=== PATIENT | female | born 1990 | race Caucasian/White ===

== ENCOUNTER 2017-02-10 13:47 | Emergency (ER) | payer OTHER ==
[2017-02-10 16:25] VITALS: BP 156/84
== END 2017-02-10 16:25 | disposition home or self-care (01) ==
LOC: ED 13:47
DX: O26.893 Other specified pregnancy related conditions, third trimester (principal); J45.909 Unspecified asthma, uncomplicated; Z3A.35 35 weeks gestation of pregnancy; Z88.2 Allergy status to sulfonamides

== ENCOUNTER 2017-03-07 13:43 | Emergency (ER) | payer OTHER ==
[2017-03-07 14:27] VITALS: BP 141/81
== END 2017-03-07 14:27 | disposition left against medical advice (07) ==
LOC: ED 13:43
DX: Z02.89 Encounter for other administrative examinations (principal); O13.3 Gestational [pregnancy-induced] hypertension without significant proteinuria, third trimester; Z3A.39 39 weeks gestation of pregnancy

== ENCOUNTER 2017-08-25 07:23 | Emergency (ER) | payer OTHER ==
[~2017-08-25] VITALS: Ht 162.6 cm; Wt 59.0 kg
[2017-08-25 07:32] VITALS: Ht 162.6 cm; Wt 59.0 kg
[2017-08-25 09:22] VITALS: BP 140/64
== END 2017-08-25 09:02 | disposition home or self-care (01) ==
LOC: ED 07:23
DX: S50.02XA Contusion of left elbow, initial encounter (principal); M25.512 Pain in left shoulder; Z88.2 Allergy status to sulfonamides; V00.131A Fall from skateboard, initial encounter; Y93.51 Activity, roller skating (inline) and skateboarding; Y99.8 Other external cause status; Y92.89 Other specified places as the place of occurrence of the external cause

== ENCOUNTER 2018-03-22 07:30 | Emergency (ER) | payer OTHER ==
[~2018-03-22] VITALS: Ht 162.6 cm; Wt 51.7 kg
[2018-03-22 07:44] VITALS: Ht 162.6 cm; Wt 51.7 kg
[2018-03-22 08:49] VITALS: BP 129/87
== END 2018-03-22 08:49 | disposition home or self-care (01) ==
LOC: ED 07:30
DX: S50.12XA Contusion of left forearm, initial encounter (principal); Z88.2 Allergy status to sulfonamides; X58.XXXA Exposure to other specified factors, initial encounter; Y93.89 Activity, other specified; Y92.89 Other specified places as the place of occurrence of the external cause; Y99.8 Other external cause status
CPT/HCPCS: Q0092

== ENCOUNTER 2018-09-28 23:00 | Emergency (ER) | payer OTHER | END 2018-09-29 00:13 | disposition other institution (70) | LOC: ED 23:00 | DX: Z02.89 Encounter for other administrative examinations (principal) ==

== ENCOUNTER 2018-09-28 23:00 | Emergency (ER) | payer MEDICAID ==
[~2018-09-28] VITALS: Ht 162.6 cm; Wt 68.0 kg
[2018-09-28 23:06] VITALS: BP 139/50; Ht 162.6 cm; Wt 68.0 kg
== END 2018-09-29 00:13 | disposition other institution (70) ==
LOC: ED 23:00
DX: O26.892 Other specified pregnancy related conditions, second trimester (principal); F19.10 Other psychoactive substance abuse, uncomplicated; R10.9 Unspecified abdominal pain; F17.210 Nicotine dependence, cigarettes, uncomplicated; Z88.2 Allergy status to sulfonamides

== ENCOUNTER 2019-06-03 01:54 | Emergency (ER) | payer MEDICAID ==
[~2019-06-03] VITALS: Ht 162.6 cm; Wt 80.3 kg
[2019-06-03 01:00] VITALS: Ht 162.6 cm; Wt 80.3 kg
[2019-06-03 02:02] LABS: BASOPHIL % 1.9 % (0-2); PLATELET COUNT 318 x10^3mcL (130-400); RED CELL DISTRIBUTION WIDTH 13.8 % (11.5-14.5); UA SPECIFIC GRAVITY 1.015 (1.005-1.035); microscopic required? YES; urine erythrocyte NEGATIVE (NEGATIVE)
[2019-06-03 02:03] LABS: CALCIUM 8.1 mg/dL (8.5-10.1); CARBON DIOXIDE 26.4 mmol/L (21-32); CHLORIDE SERUM 105 mmol/L (98-107); CREATININE SERUM 0.8 mg/dL (0.6-1.0); GFR1 > 60 mL/min; GLUCOSE SERUM 128 mg/dL (74-106); POTASSIUM SERUM 3.8 mmol/L (3.5-5.1); SODIUM SERUM 139 mmol/L (136-145)
[2019-06-03 02:07] LABS: ALBUMIN 3.5 g/dL (3.4-5.0); ALKALINE PHOSPHATASE 124 U/L (46-116); ALT/SGPT 25 U/L (14-59); AST/SGOT 14 U/L (15-37); LIPASE 60 IU/L (73-393); TOTAL PROTEIN, SERUM 7.5 g/dL (6.4-8.2)
[2019-06-03 05:23] VITALS: BP 99/52
== END 2019-06-03 06:08 | disposition home or self-care (01) ==
LOC: ED 01:54
PROVIDERS: Emergency Medicine
DX: R10.31 Right lower quadrant pain (principal); D72.829 Elevated white blood cell count, unspecified; K59.00 Constipation, unspecified; Z98.890 Other specified postprocedural states; Z88.2 Allergy status to sulfonamides
CPT/HCPCS: J1885; J2405

== ENCOUNTER 2020-06-26 01:18 | Emergency (ER) | payer OTHER | END 2020-06-26 01:57 | disposition other institution (70) | LOC: ED 01:18 | DX: Z02.89 Encounter for other administrative examinations (principal) ==

== ENCOUNTER 2020-06-26 01:18 | Emergency (ER) | payer OTHER ==
[~2020-06-26] VITALS: Ht 165.1 cm; Wt 81.6 kg
[2020-06-26 01:23] VITALS: BP 138/77; Ht 165.1 cm; Wt 81.6 kg
[2020-06-26 01:58] LABS: UA SPECIFIC GRAVITY >=1.030 (1.005-1.035); microscopic required? YES; urine erythrocyte 1+ (NEGATIVE)
== END 2020-06-26 01:57 | disposition other institution (70) ==
LOC: ED 01:18
PROVIDERS: Specialist
DX: O26.892 Other specified pregnancy related conditions, second trimester (principal); R82.71 Bacteriuria; E11.9 Type 2 diabetes mellitus without complications; Z13.9 Encounter for screening, unspecified; Z3A.14 14 weeks gestation of pregnancy; Z88.2 Allergy status to sulfonamides

== ENCOUNTER 2020-09-10 11:03 | Emergency (ER) | payer OTHER | END 2020-09-10 13:30 | LOC: ED 11:03 | DX: Z02.89 Encounter for other administrative examinations (principal) ==

== ENCOUNTER 2020-09-10 11:03 | Emergency (ER) | payer OTHER ==
[~2020-09-10] VITALS: Ht 162.6 cm; Wt 68.0 kg
[2020-09-10 11:04] VITALS: BP 124/83; Ht 162.6 cm; Wt 68.0 kg
== END 2020-09-10 13:30 ==
LOC: ED 11:03
DX: O99.322 Drug use complicating pregnancy, second trimester (principal); O24.912 Unspecified diabetes mellitus in pregnancy, second trimester; F11.90 Opioid use, unspecified, uncomplicated; Z3A.28 28 weeks gestation of pregnancy; Z98.890 Other specified postprocedural states; Z88.2 Allergy status to sulfonamides